=== PATIENT | male | born 1955 | race Caucasian/White ===

== ENCOUNTER 2023-05-11 06:44 | Day surgery (SDC) | payer OTHER ==
[2023-05-09 15:11] LABS: Lymphocytes % 34.3 % (15.3-44.8); MCV 90.6 fL (80-100); MPV 8.4 fL (7.6-11.3); Platelets 229 thou/uL (152-406); RBC Red Blood Cell Count 4.75 M/uL (4.33-5.43)
--- NOTE | 2023-05-09 16:26 | RAD REPORT ---
EXAM DESCRIPTION: RAD - Chest Pa And Lat (2 Views) - 05/09/2023 3:25 pm CLINICAL HISTORY: pre op pending hernia repair COMPARISON: No comparisons TECHNIQUE: PA and lateral views of the chest were obtained. FINDINGS: The lungs are clear. Heart size is normal and central vasculature is within normal limits. No pleural effusion or pneumothorax seen. No acute bony finding noted. IMPRESSION: No acute cardiopulmonary process.
[2023-05-11] MEDS ORDERED: Ringers Lactate 1,000 ML IV ONE ×2 (07:19→10:23)
[2023-05-11] MEDS ORDERED: CEFAZOLIN SODIUM 1 GM/VIAL ONE ×2 (07:19→09:10)
[2023-05-11] MEDS ORDERED: FENTANYL CITR 100 MCG/2 ML ONE ×2 (08:11→09:42)
[2023-05-11] MEDS ORDERED: propofoL 200 MG/20 ML VIAL IV ONE (08:11)
[2023-05-11] MEDS ORDERED: LIDOCAINE 2% MPF 5 ML VIAL ONE (08:12)
[2023-05-11] MEDS ORDERED: ROCURONIUM 50 MG/5 ML VIAL IV ONE (08:12)
--- NOTE | 2023-05-11 08:18 | P.HP ---
Date of Service: 05/11/23 PC: This 67-year-old male presents for repair of inguinal hernia. HPC: Patient has been experiencing pain in his groin. He noticed a bulge in that area. This happened a couple of weeks ago. Pain he said was atrocious. Since then he has noticed discomfort in that area. PSHx: Bowel resection for Crohn's disease in the PMHx: Negative Social Hx: No known allergies Sys R: No cough, wheeze, shortness of breath. No chest pain or palpitations. Denies any urinary complaints at all. O/E: Awake alert vital signs are stable HEENT: Negative Chest: Chest movement equal bilaterally Abd: Right inguinal hernia, reducible [place]: Intact Data: Within normal limits Impression: Inguinal hernia Plan: I will taken the operating room for a laparoscopic possible open repair of this inguinal hernia. The risks of this procedure in view of the fact that he has had a previous bowel resection were explained. We will attempt to do it laparoscopically, but may require an open procedure. He understands and wants to proceed.
[2023-05-11] MEDS ORDERED: MIDAZOLAM HCL 2 MG/2 ML INJ ONE (08:30)
[2023-05-11] MEDS ORDERED: GLYCOPYRROLATE 0.2 MG/ML SYR ONE ×2 (09:23→09:52)
[2023-05-11] MEDS ORDERED: EPHEDRINE SULF 50 MG/ML VIAL ONE (09:25)
[2023-05-11] MEDS ORDERED: NEOSTIGMINE 1 MG/ML -10 ML VIAL ONE (09:44)
[2023-05-11 14:46] VITALS: BP 137/85; TEMP 96.9; O2SAT 98
--- NOTE | 2023-05-11 15:01 | EKG ---
Test Date: 2023-05-09 Test Time: 14:40:25 Head Librarian: NATALIA MEASUREMENT RESULTS: Intervals: Rate: 55 [place]: 162 QRSD: 86 QT: 404 QTc: 386 [place]: P: 47 [place]: 162 QRS: 26 T: 49 INTERPRETIVE STATEMENTS: Sinus bradycardia Otherwise normal ECG Compared to ECG 09/26/2015 09:55:52 Sinus rhythm no longer present Electronically Signed On 05-11-23 14:56:22 CDT by Dex Mckee
--- NOTE | 2023-05-11 15:06 | P.OP ---
Preoperative diagnosis: Right inguinal hernia Postoperative diagnosis: Right indirect inguinal hernia [reducible] Primary procedure: Laparoscopic right inguinal hernia repair with mesh Anesthesia: General Estimated blood loss: Less than 10 cc Specimen: None sent Operative Technique: The patient brought the operating room placed supine on the table. After the induction of adequate general endotracheal anesthesia, a Angel catheter was inserted, and the abdomen was prepped with DuraPrep solution in the usual aseptic manner. A subumbilical incision was made. This brought down through the skin and subcutaneous tissue. The fascia over the rectus muscle was identified. An opening was made in the anterior rectus sheath. The balloon dissector was now passed down towards the pubic symphysis and inflated. Having created this preperitoneal space, the balloon was now withdrawn. The trocar was left in place and we were able to create a preperitoneal space to a pressure of approximately 12 mmHg. With the placement placed in Trendelenburg and rolled to the left we were able to visualize the right lower anterior abdominal wall. We could see a very obvious right inguinal hernia. This was gently dissected off of the spermatic cord down through the defect in the abdominal wall and reduced well back into the peritoneal cavity. The area was now cleared to make sure we had good pullback of the peritoneum from the floor of the pelvis so that the mesh would lay in good anatomical position. The artery was identified and we will place the mesh posterior to the artery. Having identified the semilunar ligament, the mesh was introduced into the preperitoneal space. It was fixed in such a manner so the area could be placed just at Florencio's ligament and create well in place on the medial aspect. Out laterally 1 like tack was placed to hold the mesh out laterally. 2 partial tacks were placed in the upper portion of the anterior layer of the mesh. The repair was now inspected. We had excellent coverage of both the indirect and direct spaces. Under direct vision we now deflated the preperitoneal space. We can see the peritoneum rolling up on top of our mesh helping to fix it in place. The patient was returned to the neutral position on the OR table. The trocars were withdrawn after having removed the preperitoneal space pressurization. Attention was now turned towards the umbilical fascial defect. This was approximated with an absorbable suture. The skin was then closed with olvin. At the end of the procedure the patient was in a stable condition was sent to the recovery room. Needle sponge instrument count were correct. No drains were placed. The Angel catheter had been removed as well. Complications: None Transferred to: Recovery Room Condition: Good
== END 2023-05-11 13:42 | disposition home or self-care (01) ==
LOC: OR 06:44
PROVIDERS: ATTEND Surgery
PROC: 0YU54JZ Supplement Right Inguinal Region with Synthetic Substitute, Percutaneous Endoscopic Approach (ICD-10-PCS; principal; 2023-05-11 08:00)
DX: K40.90 Unilateral inguinal hernia, without obstruction or gangrene, not specified as recurrent (principal); K50.90 Crohn's disease, unspecified, without complications
CPT/HCPCS: 93005; 85025; 36415; 71046; 49650; J2704; J2710; J2001; J2250; J3010 ×2; J7120 ×2; J0690 ×2